=== PATIENT | female | born 1985 | race Hispanic/Latino ===

== ENCOUNTER 2016-08-31 02:21 | Inpatient (IN) | payer OTHER ==
[2016-08-31] MEDS ORDERED: Sodium Chloride 0.9% 1,000 ML IV STA ×2 (02:46→04:52)
[2016-08-31 03:05] LABS: BASO % 0.7 % (0.0-2.0); EOS % 0.6 % (0.0-4.0); HEMATOCRIT 39.2 % (34.0-47.0); LYMPH % 28.1 % (20.0-40.0); MEAN CELL VOLUME 94.2 fl (81.0-99.0); MEAN CORPUSCULAR HEMOGLOBIN 32.8 pg (27.0-31.0); MEAN CORPUSCULAR HGB CONC 34.8 g/dL (33.0-37.0); MEAN PLATELET VOLUME 10.2 fl (7.2-11.7); MONO # 0.4 K/uL (0.0-0.8); NEUT # 4.7 K/uL (1.8-7.0); NEUT % 65.6 % (50.0-75.0); NRBC % 0.1 % (0.0-0.0); RED CELL DISTRIBUTION WIDTH 11.9 % (11.5-14.5); WHITE BLOOD COUNT 7.1 K/uL (4.8-10.8)
[2016-08-31 03:30] LABS: CHLORIDE 111 mmol/L (98-107); POTASSIUM 3.8 MMOL/L (3.6-5.0); SODIUM 146 mmol/l (132-148)
[2016-08-31 03:33] LABS: ALCOHOL SERUM 121 mg/dl (0-10); BLOOD UREA NITROGEN 16 mg/dl (7-17); CARBON DIOXIDE 20 mmol/L (22-30); GFR AFRICAN-AMERICAN > 60; GLUCOSE,RANDOM 100 mg/dL (65-105)
[2016-08-31 03:34] LABS: CALCIUM 9.1 mg/dL (8.4-10.2)
--- NOTE | 2016-08-31 04:19 | ED PDOC ---
HPI: Psych/Substance Abuse Time Seen by Provider: 08/31/16 02:33 Chief Complaint (Nursing): Psychiatric Evaluation Chief Complaint (Provider): overdose, suicide attempt History Per: Patient History/Exam Limitations: no limitations Onset/Duration Of Symptoms: Hrs Current Symptoms Are (Timing): Still Present Suicide/Self Injury Attempted (Context): Ingestion Additional Complaint(s): 30yo female presents to the ED for evaluation of overdose and suicide attempt. Patient took between 10 and 20 xanax between 2200 and 2300 last night and also admits to drinking alcohol. Patient states she was attempting to commit suicide. Denies any other medical complaints. Past Medical History Reviewed: Historical Data, Nursing Documentation, Vital Signs Vital Signs: Last Vital Signs Temp 98.2 F 08/31/16 02:26 Pulse 84 08/31/16 04:02 Resp 14 08/31/16 04:02 BP 91/84 L 08/31/16 04:02 Pulse Ox 100 08/31/16 04:02 - Medical History PMH: No Chronic Diseases - Surgical History Surgical History: No Surg Hx - Family History Family History: States: No Known Family Hx - Home Medications Home Medications: Ambulatory Orders Medication Instructions Recorded Citalopram Hydrobromide [Celexa] 2 tab PO DAILY 08/31/16 buPROPion [Bupropion HCl] 150 mg PO DAILY 08/31/16 - Allergies Allergies/Adverse Reactions: Allergies Allergy/AdvReac Type Severity Reaction Status Date / Time No Known Allergies Allergy Verified 08/31/16 02:25 Review of Systems ROS Statement: Except As Marked, All Systems Reviewed And Found Negative Psych: Positive for: Suicidal ideation, Other (suicide attempt ) Physical Exam - Reviewed Nursing Documentation Reviewed: Yes Vital Signs Reviewed: Yes - Physical Exam Appears: Positive for: Well, No Acute Distress Head Exam: Positive for: ATRAUMATIC, NORMAL INSPECTION, NORMOCEPHALIC Skin: Positive for: Normal Color, Warm, Dry Eye Exam: Positive for: Normal appearance, EOMI, PERRL ENT: Positive for: Normal ENT Inspection Neck: Positive for: Normal, Painless ROM, Supple Cardiovascular/Chest: Positive for: Regular Rate, Rhythm. Negative for: Murmur , Tachycardia Respiratory: Positive for: Normal Breath Sounds. Negative for: Wheezing, Respiratory Distress Gastrointestinal/Abdominal: Positive for: Normal Exam, Soft. Negative for: Tenderness Back: Positive for: Normal Inspection Extremity: Positive for: Normal ROM. Negative for: Deformity, Swelling Neurologic/Psych: Negative for: Alert (drowsy but easily arousable ) - Laboratory Results Result Diagrams: 08/31/16 03:00 08/31/16 03:00 - ECG O2 Sat by Pulse Oximetry: 100 Pulse Ox Interpretation: Normal (RA) Medical Decision Making Medical Decision Makin: Impression: Benzodiazepine overdose Plan: Labs EKG crisis eval IVF 1:1 obs reassess Poison control consulted who recommends supportive care. 0638: Patient was evaluated by crisis and will be admitted to psych for further workup and treatment. Patient is medically cleared, case is closed as per Poison control center. Scribe Attestation: Documented by Brenda Liu acting as a scribe for Carl Abernathy MD. Provider Scribe Attestation: All medical record entries made by the Scribe were at my direction and personally dictated by me. I have reviewed the chart and agree that the record accurately reflects my personal performance of the history, physical exam, medical decision making, and the department course for this patient. I have also personally directed, reviewed, and agree with the discharge instructions and disposition. Disposition - Clinical Impression Clinical Impression: Depression - Patient ED Disposition Is Patient to be Admitted: Yes - Disposition Disposition Time: 06:38 Condition: STABLE
--- NOTE | 2016-08-31 07:48 | CARD ---
APPROVED REPORT EKG Measurement Heart [id number] <Conclusion> Normal sinus rhythm Normal ECG
[2016-08-31 10:14] LABS: RBC URINE 1 /hpf (0-3); URINE BILIRUBIN NEGATIVE (NEGATIVE); URINE BLOOD SMALL (NEGATIVE); URINE COLOR YELLOW (YELLOW); URINE GLUCOSE (UA) NEG (Normal); URINE KETONE NEGATIVE (NEGATIVE); URINE LEUKOCYTE ESTERASE NEG Leu/uL (Negative); URINE PROTEIN NEGATIVE (NEGATIVE); URINE UROBILINOGEN 0.2-1.0 mg/dL (0.2-1.0); WBC URINE 1 /hpf (0-5)
--- NOTE | 2016-08-31 10:55 | ED PDOC ---
- Laboratory Results Result Diagrams: 08/31/16 03:00 08/31/16 03:00 - ECG O2 Sat by Pulse Oximetry: 100 Medical Decision Making Medical Decision Making: patient initially admitted here for SI/OD. Dispo changed to [place] [facility] due to lack of available beds there. Labs reviewed. Patient is medically cleared. She is easily awakened from sleep. Case d/w Dr. Palacios for transfer. Disposition Doctor Will See Patient In The: Hospital - Clinical Impression Clinical Impression: Depression - POA Present On Arrival: None - Disposition Disposition: Other Institution ([facility]) Disposition Time: 10:55 Condition: STABLE
[2016-08-31] MEDS ORDERED: Magnesium Hydroxide Susp 30 ml UD PO PRN (16:43)
[2016-08-31] MEDS ORDERED: Alum-Mag Hydrox-Simethicone Susp (30 mL) PO PRN (16:43)
[2016-08-31] MEDS ORDERED: DiphenhydrAMINE 50 mg/ml Inj IM PRN (16:43)
[2016-08-31 22:37] VITALS: RESP 18
[2016-09-01 03:09] VITALS: O2SAT 100
[2016-09-01 07:32] LABS: ALB/GLOB RATIO 1.3 (1.0-2.1); BILIRUBIN,TOTAL 0.8 mg/dl (0.2-1.3); TOTAL PROTEIN 6.6 G/DL (6.3-8.2)
[2016-09-01 07:48] LABS: T4 6.75 ug/dl (5.5-11.0)
[2016-09-01 08:01] LABS: THYROID STIMULATING HORMONE 2.76 mIU/ML (0.46-4.68)
[2016-09-01] MEDS ORDERED: buPROPion SR 150 MG TABLET PO SCH (10:30)
[2016-09-01 11:07] VITALS: BP 125/85; PULSE 55; TEMP 97.5
--- NOTE | 2016-09-01 11:16 | PCM.PSYCH ---
Initial Psychiatric Evaluation - Initial Psychiatric Evaluation Type of Admission: Voluntary Legal Status: Capacity Chief Complaint (in patient's own words): i really don't want to stay here Patient's Reaction to Hospitalization: has signed a 48 hour notice History of Present Illness and Precipitating Events: 30 yo female, currently living in [place]. She is under the care of an outpatient psychiatrist and therapist in [place]. pt was admitted to [facility] last night after a suicide attempt. pt took appox 20 0.5mg xanax tablets while intoxicated. she admits it was a suicide attempt. she reports she was out with her friends and had been drinking. she went to her bf's house and he refused to let her in and she felt rejected. pt wrote a suicide note. pt was very sedated and somnolent when medically cleared in the ER and sent up to the unit. the patient is now awake and coherent. she continues to state she wants to go home. she is not retracting her 48 hour notice. she reports she has been going through a lot lately- trouble finding work, debt from school. she is stating she is not an alcohol but acknowledges she may have some problems stopping once she starts drinking. she has a prior suicide attempt by overdose in 2013. one of the reasons she states she wants to leave is that she was not happy with her treatment here in 2013. she is currently calm and we have discussed her treatment options which she understands. she reports she has had recent medication changes- increased the celexa and t/c increasing the wellbutrin. Current Medications: Active Medications Generic Name Dose Route Start Last Admin Trade Name Eun PRN Reason Stop Dose Admin Acetaminophen 650 mg 08/31/16 16:43 Tylenol 325mg Tab PO Q4 PRN Pain, moderate (4-7) Al Hydrox/Mg Hydrox/Simethicone 30 ml 08/31/16 16:43 Maalox Plus 30 Ml PO Q4 PRN Dyspepsia Bupropion HCl 150 mg 09/01/16 10:30 Wellbutrin Sr 150 Mg PO DAILY FARSHAD Citalopram Hydrobromide 40 mg 09/01/16 10:30 Celexa PO DAILY FARSHAD Diphenhydramine HCl 50 mg 08/31/16 16:43 Benadryl IM Q6 PRN Extrapyramidal S/S Unable PO Haloperidol 5 mg 08/31/16 16:43 Haldol PO Q4 PRN Agitation Haloperidol Lactate 5 mg 08/31/16 16:43 Haldol IM Q4 PRN Agitation, Unable to Take PO Magnesium Hydroxide 30 ml 08/31/16 16:43 Milk Of Magnesia PO HS PRN Constipation celexa 40mg daily, wellbutrin sr 150mg daily Past Psychiatric History - Past Psychiatric History Previous Treatment History: Inpatient Prior Professional Help: sees dr sejal mckeon as psychiatrist and naveed henao as therapist At [facility]: [facility] in 2013 History of Abuse: denies history of physical or sexual abuse History of ETOH/Drug Use: bal 121 in er; pt received xanax from an acquaintance but denies abusing xanax. denies other substance use. denies cigarette use History of Family Illness: denies anyone in family is in treatment. pt states her mother "has obvious issues" Pertinent Medical Hx (Current Medical&Sleep Prob, Allergies): Allergies Allergy/AdvReac Type Severity Reaction Status Date / Time No Known Allergies Allergy Verified 08/31/16 02:25 Citalopram Hydrobromide [Celexa] 2 tab PO DAILY 08/31/16 buPROPion [Bupropion HCl] 150 mg PO DAILY 08/31/16 Norethindrone-E.estradiol-Iron [Lo Loestrin Fe 10 Mcg-75 mg-1 mg] 1 tab PO DAILY 09/01/16 denies medical problems Review of Systems - Psychiatric Psychiatric: As Per [facility] Mental Status Examination - Personal Presentation Personal Presentation: Looks stated age - Affect Affect: Constricted - Motor Activity Motor Activity: Calm - Reliability in Providing Information Reliability in Providing Information: Good - Speech Speech: Organized - Mood Mood: Depressed, Anxious - Formal Thought Process Formal Thought Process: No Impairment - Obsessions/Compulsions Obsessions: No Compulsions: No - Cognitive Functions Orientation: Person, Place, Situation, Time Sensorium: Alert Attention/Concentration: Attentive Abstract Thinking: Mccormick Estimate of Intelligence: Above Average Judgement: Intact, as evidence by: Insight regarding need for hospitalization Memory: Recent intact, as evidence by: Ability to recall events of the day, Remote intact, as evidenced by: Abilit to recall sig. life events - Risk Risk: Suicidal (2nd suicide attempt, denies thoughts currently. wants to live. has supports), Diminished functioning - Strength & Assets Inventory Strength & Assets Inventory: Intelligence, Family support, Education - Limitations Limitations: Other (poor insight into problematic drinking) DSM 5 DX - DSM 5 DSM 5 Diagnosis: major depression recurrent severe alcohol use disorder - Recommended/Plan of Treatment Treatment Recommendations and Plan of Treatment: admit 3np for safety and observation gather collateral information- have called and left message for pt's psychiatrist at [phone] provide supportive therapy adjust medications- will continue her current medications. monitor for alcohol withdrawal hospitalist consult disposition planning- t/c screening for involuntary hospitalizations if team cannot contact family/providers and develop a safe discharge plan. Projected ELOS: 3-5 days Prognosis: fair Discharge Plan and Discharge Criteria: pt will need to be supervised by family and with close support and follow up with her current providers. - Smoking Cessation Smoking Cessation Initiated: No Reason for not providing: does not smoke
--- NOTE | 2016-09-01 12:53 | PCM.PYCHDC ---
Mental Status Examination - Mental Status Examination Orientation: Person, Place, Situation, Time Memory: Intact Mood: Depressed Affect: Broad Speech: Appropriate Attention: WNL Concentration: WNL Association: WNL Fund of Knowledge: WNL Formal Thought Process: No Impairment Description of patient's judgement and insight: superficial insight regarding alcohol use, fair regarding her need for treatment for depression Psychotic Thoughts and Behaviors: denies a/v hallucinations, no delusions endorsed or elicited. Suicidal Ideation: No Current Homicidal Ideation?: No Plan: recent suicide attempt by overdose while intoxicated. now she is regretting this and wants to live. she has the support of her family who will be monitoring her. Discharge Summary - Discharge Note Reason for Hospitalization: pt took an overdose of appox 10mg xanax while intoxicated Psychiatric History (includes Medical, Family, Personal Hx): recurrent depression, history of prior od attempt. in treatment currently Laboratory Data: Abnormal Lab Results 09/01/16 06:35 Total Bilirubin 0.8 Direct Bilirubin 0.1 AST 27 ALT 26 Alkaline Phosphatase 46 Total Protein 6.6 Albumin 3.8 Globulin 2.8 Albumin/Globulin Ratio 1.3 Triglycerides 121 Cholesterol 157 LDL Cholesterol Direct 72 HDL Cholesterol 63 Thyroxine (T4) 6.75 TSH 3rd Generation 2.76 bal 121 Consultations:: List each consultation separately and include: 1. Reason for request. 2. Findings. 3. Follow-up Consultations: seen by the hospitalist Summary of Hospital Course include:: 1. Description of specific treatment plan utilized for patients during their course of treatmen. 2. Summarize the time- course for resolution of acute symptoms and/or regressed behaviors. 3. Describe issues identified and worked on during hospitalization. 4. Describe medication utilized. 5. Describe medical problems identified and treated. 6. Reassessment of suicide risk Summary of Hospital Course: 30 yo female, currently living in [place]. She is under the care of an outpatient psychiatrist and therapist in [place]. pt was admitted to [facility] last night after a suicide attempt. pt took appox 20 0.5mg xanax tablets while intoxicated. she admits it was a suicide attempt. she reports she was out with her friends and had been drinking. she went to her bf's house and he refused to let her in and she felt rejected. pt wrote a suicide note. pt was very sedated and somnolent when medically cleared in the ER and sent up to the unit. the patient is now awake and coherent. she continues to state she wants to go home. she is not retracting her 48 hour notice. she reports she has been going through a lot lately- trouble finding work, debt from school. she is stating she is not an alcohol but acknowledges she may have some problems stopping once she starts drinking. she has a prior suicide attempt by overdose in 2013. one of the reasons she states she wants to leave is that she was not happy with her treatment here in 2012. she is currently calm and we have discussed her treatment options which she understands. she reports she has had recent medication changes- increased the celexa and t/c increasing the wellbutrin. pt denies access to a fire arm at her home or her family's home. the treatment team has contacted the pt's family (father) who is supporting the patients request to be discharged. he is able to provide close supervision for the patient who will be staying with him over the next few days. pt agrees to stay with her family. the patient's psychiatrist, Dr. Vazquez, was also contacted and informed of admission and pt's request to be discharge. pt's psychiatrist will see her on , september 08 at 8pm and pt has an option to call for an appointment at 9am on mondayseptember 06 if she chooses. the patient was denying any suicidal or homicidal thoughts at the time of discharge. she was future oriented and goal directed at the time of discharge. - Final Diagnosis (DSM 5) Condition upon Discharge: STABLE DSM 5: major depression recurrent moderate alcohol use disorder Disposition: HOME/ ROUTINE Follow-up Treatment Plan: follow up with aftercare as directed continue home medications- no prescriptions given call 911 if any suicidal or homicidal thoughts do not use alcohol tobacco or other illicit substances - Smoking Cessation Smoking Cessation Medication prescribed: No - Antipsychotic Medications Pt discharged on 2 or more routine antipsychotic medications: No
--- NOTE | 2016-09-01 17:10 | CP.PCM.HP ---
History of Present Illness - History of Present Illness History of Present Illness: CC: Medical consult HPI: 30 year old female with no PMHx admitted for suicidal attempts. Patient stated she was very angry about what happen with her boyfriend break up and took her best friend's large quantity of xanax tablets but not sure how many tablets were and not sure what happen after that. Patient denies any Chest pain,no SOB, no fevers, no chills. There is no nausea , no emesis, no diarrhea, no hematochezia, no melena, no dysuria, no frequency or urgency. There are no complaints of myalgia or arthralgias, no URI symptoms , no numbness or tingling or limb weakness. ROS: pertinent positives in HPI, all other 10 ROS are negative by me PMD: None PMH: None PSH: None MEDICATIONS: None ALLERGIES: NKDA FH: Denies any FH of CAD/TX, HTN, CVA, Cancer, DM II SH: Tobacco - Denies EtOH - heavy drinker mixture of 2-6 oz beer, wine and hard liquor Drugs - Denies Present on Admission - Present on Admission Any Indicators Present on Admission: No Review of Systems - Review of Systems All systems: reviewed and no additional remarkable complaints except Past Patient History - Past Social History Smoking Status: Never Smoked - CARDIAC Hx Cardiac Disorders: No - PULMONARY Hx Respiratory Disorders: No - NEUROLOGICAL Hx Neurological Disorder: No - HEENT Hx HEENT Problems: No - RENAL Hx Chronic Kidney Disease: No - ENDOCRINE/METABOLIC Hx Endocrine Disorders: No - HEMATOLOGICAL/ONCOLOGICAL Hx Blood Disorders: No - INTEGUMENTARY Hx Dermatological Problems: No - MUSCULOSKELETAL/RHEUMATOLOGICAL Hx Musculoskeletal Disorders: No - GENITOURINARY/GYNECOLOGICAL Hx Genitourinary Disorders: No - PSYCHIATRIC Hx Substance Use: No - SURGICAL HISTORY Hx Kidney Transplant: No - ANESTHESIA Hx Anesthesia: No Meds Allergies/Adverse Reactions: Allergies Allergy/AdvReac Type Severity Reaction Status Date / Time No Known Allergies Allergy Verified 08/31/16 02:25 Physical Exam - Constitutional Appears: Well, Non-toxic, No Acute Distress - Head Exam Head Exam: ATRAUMATIC, NORMAL INSPECTION, NORMOCEPHALIC - Eye Exam Eye Exam: EOMI, Normal appearance, PERRL Pupil Exam: NORMAL ACCOMODATION, PERRL - ENT Exam ENT Exam: Mucous Membranes Moist - Neck Exam Neck exam: Positive for: Full Rom - Respiratory Exam Respiratory Exam: Clear to Auscultation Bilateral, NORMAL BREATHING PATTERN - Cardiovascular Exam Cardiovascular Exam: REGULAR RHYTHM, RRR, +S1, +S2 - GI/Abdominal Exam GI & Abdominal Exam: Normal Bowel Sounds, Soft - Neurological Exam Neurological exam: Alert, CN II-XII Intact, Normal Gait, Oriented x3 - Psychiatric Exam Psychiatric exam: Normal Affect, Normal Mood - Skin Skin Exam: Normal Color, Warm Results - Vital Signs Recent Vital Signs: Last Vital Signs Temp 97.5 F L 09/01/16 09:00 Pulse 55 L 09/01/16 09:00 Resp 18 09/01/16 09:00 BP 125/85 09/01/16 09:00 Pulse Ox 100 09/01/16 02:30 - Labs Result Diagrams: 08/31/16 03:00 08/31/16 03:00 Labs: Laboratory Results - last 24 hr 09/01/16 09/01/16 06:35 06:35 Hemoglobin A1c 5.0 Total Bilirubin 0.8 Direct Bilirubin 0.1 AST 27 ALT 26 Alkaline Phosphatase 46 Total Protein 6.6 Albumin 3.8 Globulin 2.8 Albumin/Globulin Ratio 1.3 Triglycerides 121 Cholesterol 157 LDL Cholesterol Direct 72 HDL Cholesterol 63 Thyroxine (T4) 6.75 TSH 3rd Generation 2.76 Assessment & Plan (1) Depression Status: Acute Comment: -discharge to home. -follow up psychiatrist, Dr. Vazquez. -continue wellbutrin and celexa Decision To Admit - Pt Status Changed To: Hospital Disposition Of: Inpatient - Admit Certification Admit to Inpatient:: After my assessment, the patient will require hospitalization for at least two midnights. This is because of the severity of symptoms shown, intensity of services needed, and/or the medical risk in this patient being treated as an outpatient. - . Bed Request Type: Adult Psychiatry Admitting Physician: Mary Mcmahon
== END 2016-09-01 15:30 | disposition home or self-care (01) | DRG 885 ==
LOC: H.ER 02:21 → H.ERHOLD 06:54 → H.PSYCH 15:03
PROVIDERS: ADMIT Psychiatry & Neurology Psychiatry; ATTEND Psychiatry & Neurology Psychiatry
PROC: GZ56ZZZ Individual Psychotherapy, Supportive (ICD-10-PCS; principal; 2016-08-31)
DX: F33.1 Major depressive disorder, recurrent, moderate (principal); Z72.89 Other problems related to lifestyle